=== PATIENT | male | born 1955 | race Two or more races ===

== ENCOUNTER → 2025-03-21 | Outpatient (CLI) | payer MEDICARE, SELFPAY ==
--- NOTE | 2025-03-21 11:00 | XR_ITS ---
EXAMINATION: PET/CT FUSION SKULL TO THIGH EXAM DATE AND TIME: March 21, 2025, 1206 hours INDICATIONS: Diagnosis multiple myeloma CTDI:vol (mGy) 9.43 DLP: (mGycm) 978.11 PROCEDURE: 15.2 mCi FDG was administered intravenously To allow for distribution and uptake of radiotracer, the patient was allowed to rest quietly in a shielded room. Imaging was performed on an integrated 16-slice PET/CT scanner, with scanning from the skull base to the mid thigh. Serum blood glucose at the time of the injection was measured 116 mg/dL. CT scanning was performed without oral or intravenous contrast material. FINDINGS: Head and Neck: There is no nghia hypermetabolism in the neck. The visualized portions of the brain are normal in appearance on CT. Chest: There is no nghia hypermetabolism in the chest. There are no pulmonary nodules. Abdomen and Pelvis: There is no nghia hypermetabolism in retroperitoneal or pelvic chains. The spleen is normal in size and FDG avidity. Musculoskeletal: Diffusely hypermetabolic osseous structures, multiple bilateral old rib fractures Multiple compression fractures cervical thoracic vertebral bodies, detail is limited secondary to continue patient motion, patient claustrophobic IMPRESSION: Study significantly limited by continuous patient motion, patient claustrophobic Diffusely hypermetabolic osseous structures, recommend plain film metastatic bone survey follow-up
== END | disposition home or self-care (01) ==
PROVIDERS: Referring Provider Internal Medicine Hematology & Oncology; Visit Provider Internal Medicine Hematology & Oncology
DX: C90.00 Multiple myeloma not having achieved remission (principal); F40.240 Claustrophobia
CPT/HCPCS: 78815; A9552